=== PATIENT | male | born 1970 | race Caucasian/White ===

== ENCOUNTER 2021-12-25 08:37 | Outpatient (CLI) | payer OTHER, SELFPAY ==
--- NOTE | ~2021-12-25 | CT_ITS ---
EXAMINATION:CT diagnostic chest wo con DATE: 12/25/2021 08:57 INDICATION: Shortness of breath. Cough. TECHNIQUE: Computed tomography (CT) of the chest was performed without intravenous contrast. Automate d exposure control and iterative reconstruction technique were employed. The dose-length product (DLP ) was 842.25 mGy-cm. COMPARISON: None. FINDINGS: There is mild emphysema. Calcified lung nodules and calcified left hilar lymph nodes are co nsistent with old granulomatous disease. No pleural effusion. The heart size is normal. No pericardia l effusion. There are changes of cholecystectomy. There is mild thoracic spondylosis and severe cervi joanna spondylosis. IMPRESSION: 1. Mild emphysema. Reviewed, dictated and finalized at location A. IMPRESSION: 1. Mild emphysema.
--- NOTE | 2021-12-25 14:28 | WPDPFTINT ---
PFT Procedure Performed PFT Procedure Performed Spirometry with Pre/Post Bronchodilator Plethysmography (Lung Vol) Diffusing Cap (DLCO) Flow Vol Loop PFT Interpretation This is a pulmonary function test with pre and post-bronchodilator spirometry, plethysmography and diffusing capacity. The test was performed and results interpreted in accordance with the 2019 and 2005 ATS/ERS Task Force guidelines respectively using the Global Lung Function Initiative-2012 reference equations. Patient demonstrated good effort and cooperation. Reproducibility criteria were met. The quality of the pre bronchodilator spirometry maneuver was Grade A and post bronchodilator spirometry maneuver was Grade A. Findings: Spirometry: The contour the inspiratory and expiratory flow tracing are normal. The pre bronchodilator FVC is 5.56 L, 112% predicted. The pre bronchodilator FEV1 is 4.05 L, 104% predicted. The pre bronchodilator FEV1: FVC ratio 73%. The post bronchodilator FVC is 5.46 L, representing a 2% decrease. The post bronchodilator FEV1 is 4.16 L, representing a 3% increase. The post bronchodilator FEV1: FVC ratio 76%. Plethysmography: The total lung capacity is 7.67 L, 110% predicted. Functional residual capacity is 3.82 L, 107% predicted. The residual volume is 2.11 L, 102% predicted. Diffusing capacity: The diffusing capacity unadjusted for hemoglobin and carboxyhemoglobin is 35.1, 115% predicted. The diffusing capacity adjusted for alveolar volume is 4.84, 107% predicted. Impression: The spirometry is normal without evidence of an obstructive abnormality. There is no significant improvement after inhaling a single dose of albuterol. The lung volumes are normal. The diffusing capacity is normal. There are no prior studies for comparison
== END 2021-12-25 08:38 | disposition home or self-care (01) ==
PROVIDERS: PCP Nurse Practitioner; Visit Provider Physician Assistant
DX: R06.02 Shortness of breath (principal); J43.9 Emphysema, unspecified
CPT/HCPCS: 71250; 94060; 94726; 94729